=== PATIENT | female | born 1990 | race African-American/Black ===

== ENCOUNTER → 2017-01-07 | Emergency (ER) | payer BC, OTHER ==
[2017-01-07 17:11] VITALS: TEMP 97.7; BMI 29.2
[2017-01-07 20:26] LABS: URINE APPEARANCE CLEAR; URINE BILIRUBIN NEGATIVE (NEGATIVE); URINE BLOOD 1+ (NEGATIVE); URINE COLOR STRAW; URINE GLUCOSE (UA) NEGATIVE (NEGATIVE); URINE KETONE NEGATIVE (NEGATIVE); URINE LEUK ESTERASE NEGATIVE (NEGATIVE); URINE NITRITE NEGATIVE (NEGATIVE); URINE PROTEIN NEGATIVE (NEGATIVE); URINE UROBILINOGEN NEGATIVE E.U./dl (0.2-1.0)
--- NOTE | 2017-01-07 21:07 | PDOC ---
History of Present Illness - General Chief Complaint: Choking Sensation Stated Complaint: CHOKING SENSATION/toothpick stuck on throat Time Seen by Provider: 01/07/17 19:31 History Source: Patient Exam Limitations: No Limitations - History of Present Illness Initial Comments: 01/07/17 20:59 26yo Female patient with no significant past medical history presents to ED c/o foreign body stuck in throat. Patient states while eating a slice of pizza, she may have swallowed a toothpick that was in the pizza. Patient states she feels the sensation of toothpick lying horizontal in throat. She denies trouble managing saliva, or diff breathing. She denies any other complaints at this time. LNMP: 4 days ago. Timing/Duration: 4-6 hours Severity: mild Modifying Factors: worse with: cold therapy, eating, immobilization, medication , movement, rest, other Associated Symptoms: denies: denies symptoms, chest pain, cough, diaphoresis, fever/chills, headaches, loss of appetite, malaise, nausea/vomiting, rash, seizure, shortness of breath, syncope, weakness, other Past History - Travel Traveled outside of the country in the last 30 days: No Close contact w/someone who was outside of country & ill: No - Past Medical History Allergies/Adverse Reactions: Allergies Allergy/AdvReac Type Severity Reaction Status Date / Time No Known Allergies Allergy Verified 01/07/17 17:11 Home Medications: Ambulatory Orders NK [No Known Home Medication] 01/07/17 Suicide Attempt (Hx): No Other medical history: denies - Psycho/Social/Smoking Cessation Hx Anxiety: No Suicidal Ideation: No Smoking Status: No Smoking History: Current some day smoker Number of Cigarettes Smoked Daily: 0 Information on smoking cessation initiated: No Hx Alcohol Use: No Drug/Substance Use Hx: No Substance Use Type: None Review of Systems - Review of Systems Able to Perform ROS?: Yes Is the patient limited Swedish proficient: No Constitutional: No: Chills, Fever HEENTM: Yes: Throat Pain, Difficulty Swallowing. No: Throat Swelling, Mouth Swelling Respiratory: No: Shortness of Breath, Stridor, Wheezing Cardiac (ROS): No: Chest Pain, Palpitations All Other Systems: Reviewed and Negative *Physical Exam - Vital Signs Last Vital Signs Temp Pulse Resp BP Pulse Ox 97.7 F 69 18 123/80 100 01/07/17 17:09 01/07/17 17:09 01/07/17 17:09 01/07/17 17:09 01/07/17 17:09 - Physical Exam General Appearance: Yes: Nourished, Appropriately Dressed. No: Apparent Distress, Mild Distress, Moderate Distress, Severe Distress HEENT: positive: EOMI, JANAY, Normal ENT Inspection, Normal Voice, Symmetrical, TMs Normal, Pharynx Normal. negative: Pharyngeal Erythema, Tonsillar Exudate, Tonsillar Erythema, Nasal Congestion, Rhinorrhea, Sinus Tenderness, TM Bulging, TM Dull, TM Erythema, Excessive drooling Neck: positive: Trachea midline, Normal Thyroid, Supple. negative: Tender, Rigid, Decreased range of motion, Stridor, Lymphadenopathy (R), Lymphadenopathy (L) Respiratory/Chest: positive: Lungs Clear, Normal Breath Sounds. negative: Chest Tender, Respiratory Distress, Accessory Muscle Use, Labored Respiration, Rapid RR Cardiovascular: positive: Regular Rhythm, Regular Rate. negative: Edema, JVD Gastrointestinal/Abdominal: positive: Normal Bowel Sounds. negative: Soft, Distended, Guarding, Rebound, Tenderness Musculoskeletal: positive: Normal Inspection. negative: CVA Tenderness, Decreased Range of Motion, Vertebral Tenderness Extremity: positive: Normal Capillary Refill, Normal Inspection, Normal Range of Motion. negative: Pedal Edema, Swelling, Calf Tenderness, Erythema, Inflammation Integumentary: positive: Normal Color, Dry, Warm. negative: Erythema, Pale, Cold, Clammy, Diaphoresis, Moist, Hives, Swelling, Bruising Neurologic: positive: pulper operator II-XII NML intact, Fully Oriented, Alert, Normal Mood/ Affect, Normal Response, Motor Strength 5/5 ED Treatment Course - ADDITIONAL ORDERS Additional order review: Laboratory Results 01/07/17 19:52 Urine Color Straw Urine Appearance Clear Urine pH 6.0 Urine Protein Negative Urine Glucose (UA) Negative Urine Ketones Negative Urine Blood 1+ H Urine Nitrite Negative Urine Bilirubin Negative Urine Urobilinogen Negative Ur Leukocyte Esterase Negative Urine HCG, Qual Negative - RADIOLOGY Radiology Studies Ordered: Category Date Time Status SOFT TISSUE NECK CT W/O CONTR [CT] Stat CT Scan 01/07/17 19:41 Ordered Medical Decision Making - Medical Decision Making 01/07/17 21:[address] Josh Garcia; unlikely foreign body stuck in throat. Have patient follow up in office tomorrow morning. *DC/Admit/Observation/Transfer Diagnosis at time of Disposition: Foreign body in pharynx Qualifiers: Encounter type: initial encounter Qualified Code(s): T17.208A - Unspecified foreign body in pharynx causing other injury, initial encounter - Discharge Dispostion Disposition: HOME Condition at time of disposition: Good Admit: No - Referrals Referrals: Wilner Thomas [Primary Care Provider] - Josh Garcia MD [Staff Physician] - - Patient Instructions Printed Discharge Instructions: DI for Foreign Body, Swallowed-Adult Additional Instructions: Follow up with Dr. Garcia tomorrow morning as discussed. Call to schedule appointment. If symptoms worsen, return for further evaluation. Print Language: SLOVAK - Post Discharge Activity Work/School Note: Back to Work
--- NOTE | 2017-01-07 21:12 | PDOC ---
*Physical Exam - Vital Signs Last Vital Signs Temp Pulse Resp BP Pulse Ox 97.7 F 69 18 123/80 100 01/07/17 17:09 01/07/17 17:09 01/07/17 17:09 01/07/17 17:09 01/07/17 17:09 ED Treatment Course - ADDITIONAL ORDERS Additional order review: Laboratory Results 01/07/17 19:52 Urine Color Straw Urine Appearance Clear Urine pH 6.0 Urine Protein Negative Urine Glucose (UA) Negative Urine Ketones Negative Urine Blood 1+ H Urine Nitrite Negative Urine Bilirubin Negative Urine Urobilinogen Negative Ur Leukocyte Esterase Negative Urine HCG, Qual Negative Medical Decision Making - Medical Decision Making 01/07/17 21:12 agree with care from BELKYS Russo *DC/Admit/Observation/Transfer Diagnosis at time of Disposition: Foreign body of throat - Discharge Dispostion Disposition: HOME Condition at time of disposition: Good - Referrals Referrals: Wilner Thomas [Primary Care Provider] - Josh Garcia MD [Staff Physician] - - Patient Instructions Printed Discharge Instructions: DI for Foreign Body, Swallowed-Adult Additional Instructions: Follow up with Dr. Garcia tomorrow morning as discussed. Call to schedule appointment. If symptoms worsen, return for further evaluation. Print Language: HEBREW - Post Discharge Activity Work/School Note: Back to Work
[2017-01-07 21:30] LABS: URINE MUCUS RARE; URINE RBC 4 /hpf (0-3); URINE WBC 1 /hpf (3-5)
[2017-01-07 22:13] VITALS: BP 118/78; PULSE 80
== END | disposition home or self-care (01) ==
LOC: JER 17:01
DX: T17.298A Other foreign object in pharynx causing other injury, initial encounter (principal); X58.XXXA Exposure to other specified factors, initial encounter; Y93.89 Activity, other specified; Y92.89 Other specified places as the place of occurrence of the external cause
CPT/HCPCS: 70490-TC; 81003; 81015; 84703; 99282-25

== ENCOUNTER 2017-01-08 11:52 | Emergency (ER) | payer OTHER ==
[2017-01-08 11:58] VITALS: TEMP 98.4; BMI 29.2
--- NOTE | 2017-01-08 14:00 | PDOC ---
History of Present Illness - General Chief Complaint: Foreign Body (FB) Stated Complaint: REVISIT Time Seen by Provider: 01/08/17 13:14 History Source: Patient Exam Limitations: No Limitations - History of Present Illness Initial Comments: 01/08/17 13:55 26y F no pmhx presents for suspected FB ingestion. Pt states that she was eating a slice of pizza yesterday, she had chewed the bite of food, and as she was swallowing she felt a scraping sensation, she tried to take it out of her mouth but had already swallowed it. She didnt feel anything solid/hard when she was masticating prior to swallowing. She came to the ED for evaluuation lsat night had a CT neck that was negative. She presents again today due to persistent pain in her throat. and now she states when she takes a deep breath she has a mild pain in her chest and is worried the toothpick mighthave travelled to her lung. The pt denies any coughing/aspiration. There is no leg swelling, no cp at rest, pt denies any abd pain. Past History - Past Medical History Allergies/Adverse Reactions: Allergies Allergy/AdvReac Type Severity Reaction Status Date / Time No Known Allergies Allergy Verified 01/08/17 11:58 Home Medications: Ambulatory Orders NK [No Known Home Medication] 01/07/17 Suicide Attempt (Hx): No Other medical history: NONE - Psycho/Social/Smoking Cessation Hx Anxiety: No Suicidal Ideation: No Smoking Status: No Smoking History: Current some day smoker Number of Cigarettes Smoked Daily: 5 Information on smoking cessation initiated: No Hx Alcohol Use: Yes (SOCIAL) Drug/Substance Use Hx: No Substance Use Type: None Review of Systems - Review of Systems Able to Perform ROS?: Yes Comments:: 01/08/17 13:58 Constitutional - no reported Fever, Chills, HEENT: +throat pain, no reported vision changes, sore throat Respiratory: no reported cough, sob, hemoptysis Cardiac: pleuritic cp no reported palpitations, light headedness, leg swelling Abd/GI: no reported abd pain, nausea, vomiting, blood per rectum, melena, diarrhea : no reported dysuria, frequency, discharge Musculskelatal - no reported back pain, joint swelling skin - no reported bruising, erythema, rash neurological: no reported headache, numbness, focal weakness, tingling, ataxia, hematologic: no reported anemia, easy bruising, easy bleeding *Physical Exam - Vital Signs Last Vital Signs Temp Pulse Resp BP Pulse Ox 98.4 F 82 20 128/63 100 01/08/17 11:54 01/08/17 11:54 01/08/17 11:54 01/08/17 11:54 01/08/17 11:54 - Physical Exam Comments: 01/08/17 14:00 GENERAL: The patient is awake, alert, and fully oriented, Nontoxic - in no acute distress. HEAD: Normocephalic, atraumatic. EYES: extraocular movements intact, sclera anicteric, conjunctiva clear. ENT: Normal voice, Moist mucous membranes. airway patent, no erythema in posterior pharynx NECK: Normal range of motion, supple LUNGS: Breath sounds equal, clear to auscultation bilaterally. No wheezes, no rhonchi, no rales. HEART: Regular rate and rhythm, normal S1 and S2 without murmur, rub or gallop. ABDOMEN: Soft, nontender, normoactive bowel sounds. No guarding, no rebound. . No CVA tenderness EXTREMITIES: Normal range of motion, no edema. No clubbing or cyanosis. No cords, erythema, or tenderness. NEUROLOGICAL: No facial assymetry, Normal speech, PSYCH: Normal mood, normal affect. SKIN: Warm, Dry, normal turgor, Medical Decision Making - Medical Decision Making 01/08/17 14:01 as pt throughly masticated and didnt feel anything hard while masticating prior to swallowing doubt significant ingestion pt never saw a toothpick, but notes that after swalliowing she coughed up something that looked like a small peice of wood. will obtain xray of chest/abdomen to r/o opaque fb 01/08/17 15:58 xras negative for radioopaque fb suspect possible small abrasion in pharyxn causing her symptoms will reer pt to ENT for further evaluation will dc with pmd fu return precautions were discussed I discussed the physical exam findings, ancillary test results and final diagnoses with the patient. I answered all of the patient's questions. The patient was satisfied with the care received and felt comfortable with the discharge plan and treatment plan. The patient will call their primary care physician within 24 hours to arrange follow-up and will return to the Emergency Department with any new, persistent or worsening symptoms. *DC/Admit/Observation/Transfer Diagnosis at time of Disposition: Throat pain - Discharge Dispostion Disposition: HOME Condition at time of disposition: Improved Admit: No - Referrals Referrals: Wilner Thomas [Primary Care Provider] - Manuel Martinez MD [Staff Physician] - - Patient Instructions Additional Instructions: I suspect that you're symptoms may be due to a small abrasion in your throat. It is unlikely that after chewing food there is any substantial foreign body. Small foreign bodies will likely pass through your intestines in your stool. Please follow-up with your primary care doctor for further evaluation. Return if you have severe abdominal pain, vomiting or any other concerns. Print Language: BELARUSIAN
[2017-01-08 16:47] VITALS: BP 121/78; PULSE 73
== END 2017-01-08 16:25 | disposition home or self-care (01) ==
LOC: JER 11:52
DX: R07.0 Pain in throat (principal); F17.210 Nicotine dependence, cigarettes, uncomplicated
CPT/HCPCS: 71020-TC; 74020-TC; 99282-25

== ENCOUNTER 2018-07-15 07:43 | Emergency (ER) | payer OTHER ==
[2018-07-15] MEDS ORDERED: SODIUM CHLORIDE 1,000 ML IV STA (08:06)
[2018-07-15 08:07] VITALS: BMI 28.3
--- NOTE | 2018-07-15 08:32 | PDOC ---
History of Present Illness - General History Source: Patient Exam Limitations: No Limitations - History of Present Illness Initial Comments: 07/15/18 10:06 Ms. Osuna is a 27-year-old female with no significant past medical history presents to the emergency department with vaginal bleeding since yesterday. The patient reports since April shes been having irregular intermittent vaginal spotting/bleeding. The patient report following up with CARTOGRAPHY TEACHER, who did blood work that was significant for hormonal abnormalities, getting worked up with recent MRI by high worker, which she had done yesterday to eval for pituitary gland abnormalities. The patient reports prior to coming to the hospital for MRI, the patient had an episode of acute onset of heavy vaginal bleeding that went through her clothes and saturated multiple pads. The patient reports when she woke up today in a pool of blood. The patient reports since morning, she has soaked through 5 pads. No prior history of similar sx. The patient reports associated symptoms of lower abdominal pain, 6/10 in severity. Denies THOMPSON or dizziness, chest pain, shortness of breath, nausea, vomiting, urinary symptoms, vaginal discharge or itchy. LMP: 06/29/18 Allergies: NKA Social history: Occasional use of tobacco and marijuana use. Surgical history: L. breast cyst removed PCP: Wilner Spencer <Leora Abebe - Last Filed: 07/15/18 10:06> - General History Source: Patient Exam Limitations: No Limitations <Liz Figueroa - Last Filed: 07/15/18 10:56> - General Chief Complaint: Vaginal Bleeding Stated Complaint: VAG BLEED Time Seen by Provider: 07/15/18 08:12 Past History <Leora Abebe - Last Filed: 07/15/18 10:06> - Past Medical History COPD: No Other medical history: DENIES. - Suicide/Smoking/Psychosocial Hx Smoking Status: No Smoking History: Current some day smoker Have you smoked in the past 12 months: Yes Number of Cigarettes Smoked Daily: 5 Information on smoking cessation initiated: No Hx Alcohol Use: Yes (SOCIAL) Drug/Substance Use Hx: No Substance Use Type: None <Liz Figueroa - Last Filed: 07/15/18 10:56> - Past Medical History Allergies/Adverse Reactions: Allergies Allergy/AdvReac Type Severity Reaction Status Date / Time No Known Allergies Allergy Verified 07/15/18 07:58 Home Medications: Ambulatory Orders NK [No Known Home Medication] 01/07/17 Review of Systems - Review of Systems Able to Perform ROS?: Yes Comments:: 07/15/18 10:06 Constitutional: no fevers or chills. HEENT: no headache or dizziness. No congestion. No visual/hearing disturbances. CVS: no cp or syncope. Resp: no sob. No cough. Abdomen: +Lower abdominal pain and diarrhea. No upper abdominal pain, nausea or vomiting. Genitourinary: +heavy vaginal bleeding. no urinary sx, hematuria. MUSCULOSKELETAL: No joint pain and swelling. No neck or back pain. SKIN: no redness or skin changes, no discharge, no rash. No wounds. Hematologic: no easy bruising/bleeding. NEUROLOGIC: No headache, dizziness, LOC or altered mental status. No weakness, numbness or tingling. All other systems reviewed and negative, or as documented in HPI. <Leora Abebe - Last Filed: 07/15/18 10:06> *Physical Exam - Vital Signs Last Vital Signs Temp Pulse Resp BP Pulse Ox 98.5 F 76 17 123/78 100 07/15/18 07:58 07/15/18 07:58 07/15/18 07:58 07/15/18 07:58 07/15/18 07:58 - Physical Exam Comments: 07/15/18 10:06 General: Well appearing, awake and alert, NAD. HEENT: NCAT, PERRL, EOMI, clear conjunctiva, anicteric, moist mucus membranes, clear oropharynx, no oral lesions.. Neck: neck supple, FROM Resp: CTAB, normal and even respirations, no respiratory distress CVS: RRR, no murmurs, 2+ peripheral pulses throughout, no peripheral edema Abdomen: +Suprapubic tenderness. soft, nondistended. No rebound or guarding. No CVAT. Female : normal external genitalia, no lesions, +blood in the vaginal vault, no CMT, no adnexal tenderness. Smooth and pink cervix, closed. Back: nontender, normal inspection and ROM MSK: no edema, [place] CRUZ x4, ROM intact. No clubbing or cyanosis. normal bulk and tone. Extremities: no calf tenderness Neuro: alert, oriented appropriately; no focal neurologic deficits Skin: warm and well perfused, cap refill <2 sec, normal color <Leora Abebe - Last Filed: 07/15/18 10:06> - Vital Signs Last Vital Signs Temp Pulse Resp BP Pulse Ox 98.5 F 76 17 123/78 100 07/15/18 07:58 07/15/18 07:58 07/15/18 07:58 07/15/18 07:58 07/15/18 07:58 <Liz Figueroa - Last Filed: 07/15/18 10:56> Moderate Sedation - Procedure Monitoring Vital Signs: Procedure Monitoring Vital Signs Temperature 98.5 F 07/15/18 07:58 Pulse Rate 76 07/15/18 07:58 Respiratory Rate 17 07/15/18 07:58 Blood Pressure 123/78 07/15/18 07:58 O2 Sat by Pulse Oximetry (%) 100 07/15/18 07:58 <Leora Abebe - Last Filed: 07/15/18 10:06> - Procedure Monitoring Vital Signs: Procedure Monitoring Vital Signs Temperature 98.5 F 07/15/18 07:58 Pulse Rate 76 07/15/18 07:58 Respiratory Rate 17 07/15/18 07:58 Blood Pressure 123/78 07/15/18 07:58 O2 Sat by Pulse Oximetry (%) 100 07/15/18 07:58 <Liz Figueroa - Last Filed: 07/15/18 10:56> ED Treatment Course - LABORATORY CBC & Chemistry Diagram: 07/15/18 09:13 07/15/18 09:13 - ADDITIONAL ORDERS Additional order review: Laboratory Results 07/15/18 09:13 Sodium 138 Potassium 4.5 Chloride 105 Carbon Dioxide 24 Anion Gap 9 BUN 9 Creatinine 0.6 Creat Clearance w eGFR > 60 Random Glucose 101 Calcium 8.5 Total Bilirubin 0.6 AST 23 ALT 21 Alkaline Phosphatase 62 Total Protein 8.0 Albumin 4.0 07/15/18 09:13 RBC 4.26 MCV 89.8 MCHC 32.1 RDW 14.4 MPV 8.0 Neutrophils % 65.7 Lymphocytes % 27.2 Monocytes % 5.1 Eosinophils % 1.4 Basophils % 0.6 - Medications Given in the ED: ED Medications Discontinued Medications Generic Name Dose Route Start Last Admin Trade Name Freq PRN Reason Stop Dose Admin Sodium Chloride 1,000 mls @ 1,000 mls/hr 07/15/18 08:06 07/15/18 09:10 Normal Saline - IV 07/15/18 09:05 1,000 mls/hr ASDIR STA Administration Sodium Chloride 1,000 ml 07/15/18 08:34 07/15/18 09:23 Normal Saline - IV 07/15/18 08:35 1,000 ml ONCE ONE Administration <Leora Abebe - Last Filed: 07/15/18 10:06> - LABORATORY CBC & Chemistry Diagram: 07/15/18 09:13 07/15/18 09:13 <Liz Figueroa - Last Filed: 07/15/18 10:56> Medical Decision Making - Medical Decision Making 07/15/18 10:52 vitals wnl. HPI as documented DDx female abdominal pain: ovarian cyst, ovarian torsion, TOA, appy, UTI, pyelonephritis, Mittelschmerz, . Dysfunctional uterine bleeding. labs and lytes normal. H/H stable. neg preg test pelvic exam unremarkable, no focal tenderness, +bleeding noted, dark red blood TVUS unremarkable, normal uterus and thickening, normal ovaries with multiple small simple cysts/follicles, normal flow CARTOGRAPHY TEACHER follow up referrals given otc analgesia. return precautions given, reassurance given, likely hormonal imbalance, so warrants outpatient endo/manager gyn eval. I discussed the physical exam findings, ancillary test results and final diagnoses with the patient. I answered all of the patient's questions. The patient was satisfied with the care received and felt comfortable with the discharge plan and treatment plan. The patient will return to the Emergency Department with any new, persistent or worsening symptoms. 07/15/18 10:54 07/15/18 10:56 <Liz Figueroa - Last Filed: 07/15/18 10:56> *DC/Admit/Observation/Transfer - Attestations Scribe Attestion: 07/15/18 10:07 Documentation prepared by Leora Abebe, acting as center medical and lab director for Liz Figueroa MD. <Leora Abebe - Last Filed: 07/15/18 10:06> - Discharge Dispostion Decision to Admit order: No - Attestations Physician Attestion: 07/15/18 10:56 ILiz MD, attest that this document has been prepared under my direction and personally reviewed by me in its entirety. I further attest, that it accurately reflects all work, treatment, procedures and medical decision -making performed by me. <Liz Figueroanerissa - Last Filed: 07/15/18 10:56> Diagnosis at time of Disposition: Vaginal bleeding - Discharge Dispostion Disposition: HOME Condition at time of disposition: Improved - Referrals Referrals: Wilner Thomas [Primary Care Provider] - Stella Eng MD [Staff Physician] - Kalpana Hoff MD [Non Staff, Medical] - - Patient Instructions Printed Discharge Instructions: DI for Vaginal Bleeding Additional Instructions: Your laboratory / imaging results were normal, including blood counts and ultrasound Follow up with your physician and consultants as instructed, take your medications as instructed including over the counter tylenol/NSAIDS as needed Return if worsening symptoms including fevers, headache, vomiting, visual or hearing disturbances, abdominal pain, chest pain, shortness of breath, syncope, dehydration, inability to take things by mouth/vomiting, altered mental status, or worsening concerning symptoms. your medications on discharge include_ side effects may include upset stomach, abdominal pain, vomiting, or diarrhea. do not drink alcohol with your medications. follow up with your correctional therapy director for further management of your bleeding. as well as your high worker - Post Discharge Activity Forms/Work/School Notes: Back to Work
[2018-07-15] MEDS ORDERED: SODIUM CHLORIDE 0.9% 500 ML INFUS.BAG IV ONE (08:34)
[2018-07-15 09:26] LABS: BASO % 0.6 % (0-2.0); EOS % 1.4 % (0-4.5); HEMATOCRIT 38.3 % (32.4-45.2); HEMOGLOBIN 12.3 GM/dL (10.7-15.3); LYMPH % 27.2 % (8-40); MCH 28.9 pg (25.7-33.7); MCHC 32.1 g/dl (32.0-36.0); MEAN CELL VOLUME 89.8 fl (80-96); MONO % 5.1 % (3.8-10.2); NEUT % 65.7 % (42.8-82.8); PLATELET COUNT 266 K/MM3 (134-434); RBC 4.26 M/mm3 (3.60-5.2); RDW 14.4 % (11.6-15.6); WHITE BLOOD COUNT 6.2 K/mm3 (4.0-10.0)
[2018-07-15 09:58] LABS: ALK PHOS 62 U/L (45-117); ANION GAP 9 MMOL/L (8-16); BILIRUBIN,TOTAL 0.6 mg/dL (0.2-1); BLOOD UREA NITROGEN 9 mg/dL (7-18); CALCIUM 8.5 mg/dL (8.5-10.1); CHLORIDE 105 mmol/L (98-107); CO2 24 mmol/L (21-32); CREATININE 0.6 mg/dL (0.55-1.3); GLUCOSE,RANDOM 101 mg/dL (74-106); POTASSIUM 4.5 mmol/L (3.5-5.1); SGOT/AST 23 U/L (15-37); SGPT/ALT 21 U/L (13-61); SODIUM 138 mmol/L (136-145)
[2018-07-15 10:25] LABS: URINE APPEARANCE SLCLOUDY; URINE BILIRUBIN NEGATIVE (<2.0 mg/dL); URINE COLOR YELLOW; URINE GLUCOSE (UA) NEGATIVE (NEGATIVE); URINE KETONE NEGATIVE (NEGATIVE); URINE LEUK ESTERASE NEGATIVE (NEGATIVE); URINE NITRITE NEGATIVE (NEGATIVE); URINE PROTEIN 1+ (NEGATIVE); URINE UROBILINOGEN NEGATIVE mg/dL (0.2-1.0)
[2018-07-15 10:51] LABS: EPI CELLS RARE /HPF (FEW); URINE MUCUS FEW
[2018-07-15 11:39] VITALS: BP 122/83; PULSE 71; TEMP 98.2
== END 2018-07-15 11:39 | disposition home or self-care (01) ==
LOC: JER 07:43
PROC: 3E0337Z Introduction of Electrolytic and Water Balance Substance into Peripheral Vein, Percutaneous Approach (ICD-10-PCS; principal; 2018-07-15)
DX: N93.8 Other specified abnormal uterine and vaginal bleeding (principal); E34.9 Endocrine disorder, unspecified
CPT/HCPCS: 36415; 76830-TC; 80053; 81003; 81015; 84703; 85025; 86900; 87086; 96360; 99283-25; J7030

== ENCOUNTER 2018-09-23 11:23 | Emergency (ER) | payer OTHER ==
[2018-09-23 11:37] VITALS: BP 123/79; PULSE 87; TEMP 98.7; BMI 28.0
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
[2018-09-23] MEDS ORDERED: IBUPROFEN 400 MG TABLET (FP) PO ONE ×2 (13:29→13:32)
== END 2018-09-23 15:39 | disposition home or self-care (01) ==
LOC: JERFT 11:23
DX: S43.401A Unspecified sprain of right shoulder joint, initial encounter (principal); X58.XXXA Exposure to other specified factors, initial encounter; Y93.89 Activity, other specified; Y92.89 Other specified places as the place of occurrence of the external cause
CPT/HCPCS: 73030-TC-RT-FY; 84703; 99281-25

== ENCOUNTER 2020-08-25 16:37 | Emergency (ER) | payer BC, OTHER ==
[2020-08-25 16:42] VITALS: BP 131/86; PULSE 81; TEMP 99.5; BMI 28.8
[2020-08-25 17:43] LABS: HCG,QUALITATIVE URINE Positive
[2020-08-25 18:09] LABS: BASO % 4.3 % (0-2.0); EOS % 2.9 % (0-4.5); HEMATOCRIT 36.7 % (32.4-45.2); HEMOGLOBIN 11.7 GM/dl (10.7-15.3); LYMPH % 37.6 % (8-40); MCH 28.7 pg (25.7-33.7); MEAN CELL VOLUME 89.6 fl (80-96); MEAN PLT VOLUME 8.2 fl (7.5-11.1); MONO % 8.5 % (3.8-10.2); NEUT % 46.7 % (42.8-82.8); PLATELET COUNT 280 K/MM3 (134-434); RBC 4.09 M/mm3 (3.60-5.2); RDW 13.1 % (11.6-15.6); WHITE BLOOD COUNT 6.9 K/mm3 (4.0-10.8)
[2020-08-25 18:18] LABS: ALBUMIN 3.8 g/dl (3.4-5.0); BILIRUBIN,TOTAL 0.7 mg/dl (0.2-1); CALCIUM 8.6 mg/dl (8.5-10); CREATININE 0.7 mg/dl (0.55-1.3); POTASSIUM 3.9 mmol/L (3.5-5.1); TOT PROT 7.2 g/dl (6.4-8.2)
== END 2020-08-25 20:26 | disposition home or self-care (01) ==
LOC: FER 16:37
DX: O03.9 Complete or unspecified spontaneous abortion without complication (principal); N93.9 Abnormal uterine and vaginal bleeding, unspecified; Z32.01 Encounter for pregnancy test, result positive
CPT/HCPCS: 36415; 76830-TC; 80053; 81003; 81015; 84702; 84703; 85025; 86850; 86900; 86901; 87086; 99284-25

== ENCOUNTER 2020-12-07 17:56 | Emergency (ER) | payer BC ==
[2020-12-07 18:16] VITALS: BP 121/80; PULSE 78; TEMP 98; BMI 29.5
[2020-12-07] MEDS ORDERED: IBUPROFEN 600 MG TABLET (FP) PO ONE ×2 (18:34→18:36)
== END 2020-12-07 18:45 | disposition home or self-care (01) ==
LOC: JERFT 17:56 → JER 17:56 → JERFT 18:45
DX: M54.5 Low back pain (principal)
CPT/HCPCS: 99283-25

== ENCOUNTER 2021-02-28 17:42 | Emergency (ER) | payer SELFPAY ==
[2021-02-28 18:09] VITALS: BP 120/76; PULSE 80; TEMP 98; BMI 32.1
[2021-02-28 19:18] LABS: BASO % 0.4 % (0-2.0); HEMATOCRIT 36.7 % (32.4-45.2); LYMPH % 41.5 % (8-40); MCH 29.1 pg (25.7-33.7); MCHC 32.8 g/dl (32.0-36.0); MEAN CELL VOLUME 88.7 fl (80-96); MEAN PLT VOLUME 8.3 fl (7.5-11.1); MONO % 3.9 % (3.8-10.2); NEUT % 51.2 % (42.8-82.8); PLATELET COUNT 273 10^3/uL (134-434); RBC 4.13 M/mm3 (3.60-5.2); RDW 14.7 % (11.6-15.6); WHITE BLOOD COUNT 7.6 K/mm3 (4.0-10.0)
[2021-02-28 19:39] LABS: ALBUMIN 3.6 g/dl (3.4-5.0); CALCIUM 8.5 mg/dL (8.5-10.1)
[2021-02-28 19:44] LABS: BILIRUBIN,TOTAL 0.2 mg/dL (0.2-1); CREATININE 0.7 mg/dL (0.55-1.3); TOT PROT 7.3 g/dl (6.4-8.2)
== END 2021-02-28 21:03 | disposition home or self-care (01) ==
LOC: JERFT 17:42
DX: R60.0 Localized edema (principal)
CPT/HCPCS: 36415; 80053; 85025; 99283-25